=== PATIENT | female | born 1990 | race Caucasian/White ===

== ENCOUNTER 2024-12-15 09:44 | Outpatient (CLI) | payer MEDICAID, SELFPAY ==
[2024-12-17 03:08] LABS: HPV Source Cervical; HPV, High Risk by TMA Not Detected
== END 2024-12-15 09:45 | disposition home or self-care (01) ==
PROVIDERS: Visit Provider Obstetrics & Gynecology
DX: Z12.4 Encounter for screening for malignant neoplasm of cervix (principal); Z11.51 Encounter for screening for human papillomavirus (HPV)
CPT/HCPCS: 87624; 87625; 88141; 88142

== ENCOUNTER 2024-12-22 10:35 | Outpatient (CLI) | payer OTHER, SELFPAY ==
--- NOTE | 2024-12-22 10:45 | CRLHL7_ITS ---
For Patients: As a result of the Century Cures Act, medical imaging exams and procedure reports are released immediately into your electronic medical record. You may view this report before your referring provider. If you have questions, please contact your health care provider. CLINICAL HISTORY: Pelvic pain COMPARISON: None. TECHNIQUE: 2D hawk-scale ultrasound. In addition, color Doppler and spectral Doppler analysis was performed of the pelvis using a transabdominal and transvaginal approach. Transvaginal imaging performed to better visualize the endometrial stripe and ovaries. FINDINGS: There is a hypoechoic structure within the right side of the lower uterine segment myometrium which measures 1.4 x 1.4 x 1.0 cm. Scattered sub cm nabothian cysts are present elsewhere. The endometrial lining appears normal and measures 4.2 mm in thickness. The right ovary measures 3.8 x 1.9 x 2.1 cm in size and the left ovary measures 3.2 x 2.4 x 1.6 cm. The ovaries demonstrate normal arterial and venous blood flow on color Doppler and spectral Doppler analysis. There are no suspicious fluid collections within the cul-de-sac. IMPRESSION: Heterogeneously hypoechoic structure within the right side of the lower uterine segment measuring 1.4 cm. This has the appearance of a complex nabothian cyst. Unremarkable ovaries. No excess pelvic free fluid or adnexal mass. Dictated by Salvador Reyes MD @ 12/22/2024 11:54:36 AM (Electronically Signed)
--- OUTSIDE RECORDS SUMMARY | 2024-12-23 00:51 | XMS_ITS ---
Author Name Rodolfo LEUNG, DR. Vitaly Beal Address [address] [id number] [id number] [place] [address] Phone [phone] Organization [facility] Care Team Providers Care Process Control Technician Name Role Phone Vitaly Reynolds Unavailable [phone] Lesia Carrillo Unavailable Keily Alcala Unavailable Unavailable Reason for Referral Not Available Allergies, adverse reactions, alerts Allergen Type Reaction Severity Status Onset Date BuSpar Allergy to substance (disorder) suicidal ideation Unknown Active N/A History of medication use Medication Class Instructions Start Date End Date Adderall XR 10 mg Cap ER 24hr No Data Available 2023-07 No Data Available Testosterone 20.25 mg/1.25GM (1.62%) Gel Transdermal 2 pumps daily 2024-05-12 No Data Availabl e OXcarbazepine 300 mg Tab 1 tablet orally 2 times per day 2024-05-12 No Data Available Famotidine 40 mg Tab 1 tablet orally kate ly at night 2024-05-12 No Data Available Clarinex 5 mg Tab 1 tablet orally marlene y in the morning 2024-05-12 No Data Available Priti Allergy 180 mg Tab 1 tablet oral ly daily at night 2024-05-12 No Data Available Singulair 10 mg Tab 1 tablet orally marlene y in the morning 2024-05-12 No Data Available Xopenex HFA 45 MCG/ACT Aeros ol Inhalation prn 2024-05-12 No Data Available DHEA 5 mg/testosterone 1 mg/ mL vaginal cream No Data Available 2024-05-12 No Data Available Tylenol prn 2024-05-12 No Data Availab le NasalCrom 5.2 mg/ACT Aerosol Solution Nasal No Data Available 2024-05-12 No Data Available pataday allergy eye drops prn 2024-05-12 No Data Available melatonin 1.5 mg No Data Available 2024-05-12 No Philippe a Available Vitamin D3 1.25 mg (54150 UT ) Cap once weekly 2024-05-12 No Data Available Vitamin C 1000 mg Tab every other day 2024-05-12 No Data Available B12 No Data Available 2024-05-12 No Data Av ailable Quercetin 500 mg Cap No Data Available 2024-05-12 No Data Available Enzym[employer] DigestGold digestive enzymes with some meals 2024-05-12 No Data Available Famotidine 40 mg Tab 1 tablet orally 2 t imes per day 2024-05-13 No Data Available predniSONE 20 mg Tab 1 tablet orally 2 t imes per day 2024-05-13 No Data Available ketotifen 1 mg Take 1 capsule PO BID 2024-05-23 No D shira Available Cyclobenzaprine 10 mg Tab 1 tablet orall y daily at bedtime 2024-06-08 No Data Available Problem List Problem Status Onset Date Resolved Date Synopsis Generalized hypermobility of joints Active 2024-05-12 N/A N/A GERD (gastroesophageal reflux disease) Active N/A N/A Asthma Active 2024-05-12 N/A N/A Environmental allergies Active 2024-05-12 N/A N /A Migraine Active 2024-05-12 N/A N/A Encounters Encounters Type Facility Date of Service Diagnosis/Co mplaint new patient, high complexity office visit [facility] 05/13/2024 Hypermobile Matthew-Danlos syndromePostural orthostatic tachycardia syndrome [POTS]Mast cell activation, unspecifiedPersonal history of sex reassignmentMixed irritable bowel syndromeSleep disorder, unspecified new patient, high complexity office visit [facility] 05/13/2024 Social History Sex Female Gender identity Transgender man / trans masc uline History of Procedures Procedures Service Procedure code Service date Servicing provider Phone# new patient, high complexity office visit [id number] 2024-05-13 No Data Available No Data Availa ble Extended Visit (at least 15 min) [id number] 2024-05-13 No Data Available No Data Availa ble Functional Status No Information Mental Status No Information Assessments Date of Service Assessments 2024-05-13 11:12:00 Hypermobile Matthew-D anlos syndromesuspected POTS (postural orthostatic tachycardia syndrome)suspected Mast cell activationTransgender with history of gender affirmation surgeryIrritable bowel syndrome with alternating bowel habits- fair controlSleep disorder Plan of Care Date of Service Plans 2024-05-13 11:12:00 Recommend Follow up in 6 - 8 Weeksrecommended that pt see hypermobile/EDS aware PTSxs overall fairly mild, and don't need treatment. May improve with treatment for other conditions here.recommended that pt still consume 80-100oz of water per dayrecommended that pt increase salt intake and aim for 2000-4000mg of sodium (4-8g of salt) per dayrecommended that pt consider compression garments. compression socks/shorts/shapewear are useful. main area for compression should be abdomen, as our largest blood vessels are there.recommended that pt consider elevating the head of their bed at night. place something under the head of the bed frame to tilt the whole bed. do NOT just sleep with a lot of pillows under your head.recommended that pt take 5000 IU Vitamin D dailyrecommended that pt take 500-1000mg Vitamin C per dayIncrease Priti 180 to 2 bid; increase by one tab weeklyContinue Singulair in AM; PM dose caused problems, so will also avoid zafirlukast.Consider ASA later if not controlled.few pelvic sxs, fredi since not having periods for monthshas vaginal itching and rash, seems correlated with seasonal allergies, so will treat same, but if severe may take prednisone for 2-3 days.Testosterone per other provider.consider low FODMAP diet, including trial off gluten and dairy with other foods.Will increase famotidine to 40 mg bid. PPI's not helpful.May be a candidate for cromolyn.Improving with night device; continue as before. Goals Date Goal 2024-05-13 If not checked in pa [facility] 6 months, recommend a panel of blood tests to check for comorbidities (CBC, CMP, Vit D, Vit B12, iron stores: ferritin level, Fe/TIBC, tryptase, ESR, CRP, TSH, celiac, autoimmune panel (ALLAN, SS-A, SS-B, rheumatoid factor, IgA, IgE, IgG) 2024-05-13 Imaging may be neces ana depending on symptoms going forward. This may include:Neck flexion and extensionSpine films MRI - Upright if avaiable 2024-05-13 Clinician spent 20 m inutes reviewing the records, more than 50 minutes [id number] with the patient, over half in discussion of the diagnosis and next steps in care plan, and an additional 30 minutes completing documentation.
--- OUTSIDE RECORDS SUMMARY | 2024-12-23 00:59 | XMS_ITS | Patient Health Record ---
Author Organization MD ANYA Jaramillo, d yam[facility] Address [address] [address] Care Team Providers Care Business Reporting Developer Name Role Phone Carolyn Alcala Unavailable [phone] Allergies Allergen (clinical drug ingredient) Drug/Non Drug Allergy documented on EMR Reaction Allergy Type Onset Date Status BuSpar Unknown Drug Allergy Active fentanyl Fentanyl nausea and vomiting Drug Allergy Active Results Component Value Reference Range Notes 5020 VITAMIN C (ASCORBIC) Reviewed date:04/25/2024 08:39:04 AM Interpretation: Performing Lab: Notes/Report: VITAMIN C (ASCORBIC) 33 23-114 umol/L Vitamin C concentrations lower than 11 umol/L indicate deficiency. Concentrations between 11 and 23 umol/L are consistent with a moderate risk of deficiency due to inadequate tissue stores. Vitamin C concentration is reported as micromoles per liter (umol/L). To convert concentration to milligrams per deciliter (mg/dL), multiply the result by 0.0176. This test was developed and its performance characteristics determined by [facility]. It has not been cleared or approved by the US Food and Drug Administration. This test was performed in a CLIA certified laboratory and is intended for clinical purposes. TESTING PERFORMED AT [facility], [address] [address] [place]. [id number] CLIA NO. [id number] VITAMIN D, 25 [place] Reviewed date:04/25/2024 08:39:04 AM Interpretation: Performing Lab: Notes/Report: VITAMIN D, 25 OH 47 SEE BELOW NG/ML NOTE: 25-HYDROXYVITAMIN D ASSAY INCLUDES 25-HYDROXYVITAMIN D2 AND D3. INTERPRETIVE RANGES PEDIATRIC (<17 YEARS) . . . . . . . . . . . NG/ML 20-100 ADULT: INSUFFICIENT . . . . . . . . . . . . . . NG/ML <20 SUBOPTIMAL . . . . . . . . . . . . . . . NG/ML 20-29 OPTIMAL . . . . . . . . . . . . . . . . . NG/ML 30-100 8 IRON BINDING CAPACITY A ND IRON AND % SATURATION Reviewed date:04/25/2024 08:39:04 AM Interpretation: Performing Lab: Notes/Report: IRON, SERUM 91 37-145 UG/DL UNSATURATED IBC 331 112-347 UG/DL CALC TOTAL IBC 422 250-450 UG/DL CALC % IRON SAT 22 20-50 % Panel Full Spectrum Reviewed date:03/18/2024 11:15:20 AM Interpretation: Performing Lab: Notes/Report: Atopobium vaginae Not Detected Not Detected Bacteroides fragilis Not Detected Not Detected Aspen albicans Not Detected Not Detected Aspen glabrata Not Detected Not Detected Aspen krusei Not Detected Not Detected Aspen parapsilosis Not Detected Not Detected Aspen tropicalis Not Detected Not Detected Gardnerella vaginalis Not Detected Not Detected Mobiluncus curtisii Not Detected Not Detected Mobiluncus mulieris Not Detected Not Detected Mycoplasma genitalium Not Detected Not Detected Mycoplasma hominis Not Detected Not Detected Prevotella bivia Not Detected Not Detected Chlamydia trachomatis Not Detected Not Detected Neisseria Gonorrhea Not Detected Not Detected Trichomonas vaginalis Not Detected Not Detected Ureaplasma urealyticum Not Detected Not Detected Collection Device Aptima Multi-Test Swab Footnote SEE COMMENT Testing for A. vaginae, B. fragilis, C. albicans, C. glabrata, C. krusei, C. tropicalis, C. parapsilosis, G. vaginalis, M. curtisii, M. mulieris, M. genitalium, M. hominis, P. bivia, and U. urealyticum was developed and its performance characteristics determined by [facility], [employer]. It has not been cleared or approved by the FDA. The laboratory is regulated under CLIA as qualified to perform high complexity testing. This test is used for clinical purposes. It should not be regarded as investigational or for research. 6049 CULTURE, URINE Reviewed date:03/18/2024 11:16:01 AM Interpretation: Performing Lab: Notes/Report: CULTURE, URINE SPECIMEN NUMBER: [id number] CULTURE, URINE SPECIMEN NUMBER: [id number] SOURCE: URINE REPORT STATUS: FINAL FINAL REPORT: 03/18/2024 <10,000 CFU/ML UROGENITAL DALJIT PRESENT NO COMMON PATHOGENS UNLESS OTHERWISE INDICATED, ALL TESTING PERFORMED AT [facility] [employer] [employer] [address] [place] [address] [employer]UM[employer] RELATIONS MANAGER: DIPTI GUERRA M.D. CLIA NUMBER [id number] [place]. [id number] Urinalysis, Complete Reviewed date:03/16/2024 12:16:38 PM Interpretation: Performing Lab: Notes/Report: Urine-Color yellow Appearance clear Specific [place] 1.010 pH 8.0 Glucose - Protein - Occult Blood - Bilirubin - Urobilinogen,Semi-Qn 0.2 Nitrite, Urine - Ketones - WBC Esterase - 6049 CULTURE, URINE Reviewed date:03/04/2024 02:44:58 PM Interpretation: Performing Lab: Notes/Report: CULTURE, URINE SPECIMEN NUMBER: [id number] CULTURE, URINE SPECIMEN NUMBER: [id number] SOURCE: URINE REPORT STATUS: FINAL FINAL REPORT: 03/04/2024 <10,000 CFU/ML UROGENITAL DALJIT PRESENT NO COMMON PATHOGENS UNLESS OTHERWISE INDICATED, ALL TESTING PERFORMED AT [facility] [employer] [employer] [address] [place], [place] [address] ALUMNI RELATIONS MANAGER: DIPTI GUERRA M.D. CLIA NUMBER [id number] [place]. [id number] Urinalysis, Complete Reviewed date:03/02/2024 05:03:18 PM Interpretation: Performing Lab: Notes/Report: Urine-Color yellow Appearance clear Specific [place] 1.020 pH 6.0 Glucose neg Protein neg Occult Blood neg Bilirubin neg Urobilinogen,Semi-Qn 0.2 Nitrite, Urine neg Ketones neg WBC Esterase +-15 4273 FREE T3 Reviewed date:04/25/2024 08:39:04 AM Interpretation: Performing Lab: Notes/Report: FREE T3 3.0 2.2-4.2 PG/ML 2835 TSH Reviewed date:04/25/2024 08:39:04 AM Interpretation: Performing Lab: Notes/Report: TSH, THIRD GENERATION 2.340 0.400-4.100 UIU/ML 2823 FREE T4 (THYROXINE) Reviewed date:04/27/2024 12:47:29 PM Interpretation: Performing Lab: Notes/Report: FREE T4 (THYROXINE) 0.87 0.80-1.90 NG/DL UNLESS OTHERWISE INDICATED, ALL TESTING PERFORMED AT [facility] [employer] [address] [place] [address] [employer] RELATIONS MANAGER: DIPTI GUERRA M.D. CLIA NUMBER [id number] [place]. [id number] COMPREHENSIVE METABOLIC PANEL Reviewed date:01/20/2024 05:11:32 PM Interpretation: Performing Lab: Notes/Report: GLUCOSE 89 70-99 MG/DL BUN 9 6-20 MG/DL CREATININE 1.07 0.60-1.30 MG/DL eGFR (2020 CKD-EPI) 69 >60 ML/MIN/1.73 CALC BUN/CREAT 8 6-28 RATIO SODIUM 140 133-146 MEQ/L POTASSIUM 3.9 3.5-5.4 MEQ/L CHLORIDE 102 95-107 MEQ/L CARBON DIOXIDE 26 19-31 MEQ/L CALCIUM 9.7 8.5-10.5 MG/DL PROTEIN, TOTAL 7.6 6.1-8.3 G/DL ALBUMIN 4.8 3.5-5.2 G/DL CALC GLOBULIN 2.8 1.9-3.7 G/DL CALC A/G RATIO 1.7 1.0-2.6 RATIO BILIRUBIN, TOTAL <0.2 <=1.2 MG/DL ALKALINE PHOSPHATASE 92 40-114 U/L AST 23 9-40 U/L ALT 22 5-40 U/L 5020 VITAMIN C (ASCORBIC) Reviewed date:01/20/2024 05:11:32 PM Interpretation: Performing Lab: Notes/Report: VITAMIN C (ASCORBIC) 14 23-114 umol/L Vitamin C concentrations lower than 11 umol/L indicate deficiency. Concentrations between 11 and 23 umol/L are consistent with a moderate risk of deficiency due to inadequate tissue stores. Vitamin C concentration is reported as micromoles per liter (umol/L). To convert concentration to milligrams per deciliter (mg/dL), multiply the result by 0.0176. This test was developed and its performance characteristics determined by [facility]. It has not been cleared or approved by the US Food and Drug Administration. This test was performed in a CLIA certified laboratory and is intended for clinical purposes. TESTING PERFORMED AT [facility] [address] [place] [address] [place]. [id number] CLIA NO. [id number] UNLESS OTHERWISE INDICATED, ALL TESTING PERFORMED AT [facility] [address] [place] [address] [employer]UMNI RELATIONS MANAGER: DIPTI GUERRA M.D. CLIA NUMBER [id number] [place]. [id number] VITAMIN D, 25 OH Reviewed date:01/20/2024 05:11:32 PM Interpretation: Performing Lab: Notes/Report: VITAMIN D, 25 OH 25 SEE BELOW NG/ML NOTE: 25-HYDROXYVITAMIN D ASSAY INCLUDES 25-HYDROXYVITAMIN D2 AND D3. INTERPRETIVE RANGES PEDIATRIC (<17 YEARS) . . . . . . . . . . . NG/ML 20-100 ADULT: INSUFFICIENT . . . . . . . . . . . . . . NG/ML <20 SUBOPTIMAL . . . . . . . . . . . . . . . NG/ML 20-29 OPTIMAL . . . . . . . . . . . . . . . . . NG/ML 30-100 4273 FREE T3 Reviewed date:01/20/2024 05:11:32 PM Interpretation: Performing Lab: Notes/Report: FREE T3 2.9 2.2-4.2 PG/ML 2840 VITAMIN B-12 Reviewed date:01/20/2024 05:11:32 PM Interpretation: Performing Lab: Notes/Report: VITAMIN B-12 295 200-950 PG/ML 2835 TSH Reviewed date:01/20/2024 05:11:32 PM Interpretation: Performing Lab: Notes/Report: TSH, THIRD GENERATION 2.420 0.400-4.100 UIU/ML 2823 FREE T4 (THYROXINE) Reviewed date:01/20/2024 05:11:32 PM Interpretation: Performing Lab: Notes/Report: FREE T4 (THYROXINE) 0.90 0.80-1.90 NG/DL 1000 CBC W/AUTO DIFF Reviewed date:01/20/2024 05:11:32 PM Interpretation: Performing Lab: Notes/Report: WBC 6.7 3.5-11.0 K/UL RBC 6.72 3.80-5.40 M/UL HEMOGLOBIN 16.6 11.5-15.5 G/DL HEMATOCRIT 51.7 34.0-45.0 % MCV 76.9 80.0-99.0 fL MCH 24.7 25.0-33.0 PG MCHC 32.1 31.0-36.0 G/DL RDW 16.8 11.5-15.0 % NEUTROPHILS 61.4 LYMPHOCYTES 29.8 MONOCYTES 6.6 EOSINOPHILS 0.9 BASOPHILS 1.0 NUCLEATED RBCS 0.0 0.0 /100 WBC'S PLATELET COUNT 404 130-400 K/UL IMMATURE GRANULOCYTES 0.3 ABSOLUTE NEUTROPHILS 4.09 1.50-7.50 K/UL ABSOLUTE LYMPHOCYTES 1.99 1.00-4.00 K/UL ABSOLUTE MONOCYTES 0.44 0.20-1.00 K/UL ABSOLUTE EOSINOPHILS 0.06 0.00-0.50 K/UL ABSOLUTE BASOPHILS 0.07 0.00-0.20 K/UL ABS IMMATURE GRANULOCYTES 0.02 0.00-0.10 K/UL ABS NUCLEATED RBCS 0.00 0.00-0.11 K/UL 391 ARTHRITIS PROFILE Reviewed date:01/25/2024 03:26:05 PM Interpretation: Performing Lab: Notes/Report: RHEUMATOID FACTOR, QUANT <10 <14 IU/ML URIC ACID 5.1 2.7-6.1 MG/DL SEDIMENTATION RATE 2 0-20 MM/HOUR ANTI-NUCLEAR ANTIBODIES POSITIVE NEGATIVE ALLAN PATTERN (REPORTED TITER) SEE BELOW HOMOGENEOUS 1:80 NEGATIVE TITER SPECKLED NEGATIVE NEGATIVE TITER DENSE FINE SPECKLED NEGATIVE NEGATIVE TITER CENTROMERE NEGATIVE NEGATIVE TITER COARSE SPECKLED NEGATIVE NEGATIVE TITER DISCRETE NUCLEAR DOTS NEGATIVE NEGATIVE TITER NUCLEOLAR NEGATIVE NEGATIVE TITER NUCLEAR MEMBRANE NEGATIVE NEGATIVE TITER CYTO. RETICULAR (JONO) NEGATIVE NEGATIVE COMMENTS NONE METHOD (NOTE) TESTING PERFORMED BY [facility] [employer] [facility]. THE METHOD INCLUDES A SCREEN THRESHOLD OF 1:80, DIGITIZED AND COMPUTER ALGORITHM-ASSISTED INTERPRETATION OF TITERS AND DIGITAL PATTERNS, AND HEp-2 CELL LINE SUBSTRATE. ADDITIONAL UNUSUAL PATTERNS WILL BE GIVEN COMMENTS. FOR MORE INFORMATION, SEE [email or web address] ing Reason For Referral Reason CALL BCBS-Availity s aid Duplicate. referral exp 01.15.2024-insurance only Andreia Velasquez-[id number]- [address] [place] [address]. PH:[phone] - FAX: [phone] Diagnosis 1 Skin cancer screenin remi (Z12.83) Referral Organization MD ANYA Jaramillo, broker in charge [facility] Referring Provider First Name Carolyn Referring Provider Last Name Fredrick Referring Provider [facility] Referred Provider Specialty Dermatology Referral Priority Routine Medications Medication SIG (Take, Route, Frequency, Duration) Notes Start Date End Date Status Singulair 10 MG 1 tablet Orally at night Active Melatonin 3 MG 1 tablet at bedtime as needed Orally Once a day Active Promethazine HCl 25 MG 1 tablet as neede d Orally every 12 hrs Active Famotidine 40 MG 1 tablet Orally Once a day for 90 days 02/04/2024 Active NasalCrom 5.2 MG/ACT 1 spray in each nos tril Nasally Three times a day Active Xopenex HFA 45 MCG/ACT 1 puff as needed Inhalation every 6 hrs for 30 days 07/14/2023 Active Levothyroxine Sodium 25 MCG 1 tablet in the morning on an empty stomach Orally Once a day for 90 days 01/26/2024 Not-Taking Escitalopram Oxalate 5 MG 1 tablet Orall y Once a day Active Adderall XR 10 MG 1 capsule in the morning Orally Once a day Active Desloratadine 5 MG 1 tablet Orally Once a day for 30 days 04/20/2024 Active Testosterone 20.25 MG/1.25GM (1.62%) 1 packet to skin in the morning to shoulder and upper arms Transdermal Once a day Active OXcarbazepine 300 MG 1 tablet Orally Twi ce a day Active Social History Tobacco Use: Social History Observation Description Date Details (start date - stop date) Never Smoker NA - NA Tobacco Use/Smoking Question Answer Notes Are you a nonsmoker AUDIT-C (Standard) Question Answer Notes Did you have a drink containing alcohol in the p ast year? No Points 0 Interpretation Negative Problems Problem Type SNOMED Code ICD Code Onset Dates Problem Status W/U Status Risk Notes Problem Obstructive sleep apnea syndrome (disorder) (00365366) Obstructive sleep apnea (adult) (pediatric) (G47.33) Active confirmed Problem Acquired hypothyroidism (564276736) Acquired hypothyroidism (E03.9) Active confirmed Problem Seasonal allergy (383405009) Seasonal allergies (J30.2) Active confirmed Problem 19562675 Chronic fatigue (R53.82) Active confirmed Problem 16209682 Other iron deficiency anemia (D50.8) Active confirmed Problem 323006077 Mild intermitten t asthma with acute exacerbation (J45.21) Active confirmed Problem Vitamin D deficiency (86905469) Vitamin D deficiency (E55.9) Active confirmed Problem Obstructive sleep apnea (34948455) Obstructive sleep apnea (G47.33) Active confirmed Problem 246232975 Gastroesophageal reflux disease, unspecified whether esophagitis present (K21.9) Active confirmed Problem 79495939 Atrophic vaginit is (N95.2) Active confirmed Problem 10361319 Gender dysphoria in adult (F64.0) Active confirmed Vital Signs Heart Rate 96 /min 04/20/2024 Temperature 98.2 degrees Fahrenheit 04/20/2024 Blood pressure diastolic 78 mm Hg 04/20/2024 Oximetry 97 % 04/20/2024 Height 68 in 04/20/2024 Blood pressure systolic 124 mm Hg 04/20/2024 Weight 153.8 lbs 04/20/2024 BMI 23.38 kg/m2 04/20/2024 Procedures Procedure Date Ordered Date Performed Result Body Sit e Sleep Study 01/26/2024 N/A Encounters Encounter Location Date Provider Diagnosis MD ANYA Jaramillo, [facility] [address] [place] [phone] 01/15/2024 Carolyn Alcala Multiple joint pain M25.50 ; Chronic fatigue R53.82 ; Mild intermittent asthma with acute exacerbation J45.21 and Skin cancer screening Z12.83 MD ANYA Jaramillo, [facility] [address] [place] [phone] 01/26/2024 Carolyn Alcala Polycythemia D75.1 ; Acquired hypothyroidism E03.9 ; Vitamin B12 deficiency E53.8 ; Vitamin D deficiency E55.9 ; Vitamin C deficiency E54 ; Other iron deficiency anemia D50.8 and Obstructive sleep apnea G47.33 MD ANYA Jaramillo, [facility] [address] [place] [phone] 02/04/2024 Carolyn Alcala Gastroesophageal ref lux disease, unspecified whether esophagitis present K21.9 and Obstructive sleep apnea (adult) (pediatric) G47.33 MD ANYA Jaramilol, [facility] [address] [place] [phone] 03/02/2024 Carolyn Alcala Dysuria R30.0 and Ac picayune cystitis without hematuria N30.00 MD ANYA Jaramillo, [facility] [address] [place] [phone] 03/16/2024 Carolyn Alcala Dysuria R30.0 ; Atro phic vaginitis N95.2 ; Vaginal irritation N89.8 ; Gastroesophageal reflux disease, unspecified whether esophagitis present K21.9 and Gender dysphoria in adult F64.0 MD ANYA Jaramillo, [facility] [address] [place] [phone] 04/20/2024 Carolyn Alcala Vitamin D deficiency E55.9 ; Vitamin C deficiency E54 ; Other iron deficiency anemia D50.8 ; Seasonal allergies J30.2 ; Acquired hypothyroidism E03.9 and Atrophic vaginitis N95.2 MD ANYA Jaramillo, [facility] [address] [place] [phone] 01/25/2024 MD ANYA Carson, [facility] [address] [place] [phone] 02/03/2024 MD ANYA Carson, [facility] [address] [place] [phone] 03/18/2024 MD ANYA Carson, [facility] [address] [place] [phone] 04/27/2024 Carolyn Alcala Assessments Encounter Date Diagnosis (ICD Code) Assessment Notes Treatment Notes Treatment Clinical Notes Section Notes 01/26/2024 Polycythemia (ICD-10 - D75.1) Pt placed on waiting list for a sleep study Refer to hematology if her sleep study is normal 02/04/2024 Obstructive sleep apnea (adult) (pediatric) (ICD-10 - G47.33) Pt will look into getting a dental appliance 02/04/2024 Gastroesophageal reflux disease, unspecified whether esophagitis present (ICD-10 - K21.9) 03/02/2024 Acute cystitis without hematuria (ICD-10 - N30.00) 03/02/2024 Dysuria (ICD-10 - R30.0) 03/16/2024 Dysuria (ICD-10 - R30.0) 01/15/2024 Chronic fatigue (ICD-10 - R53.82) 01/15/2024 Multiple joint pain (ICD-10 - M25.50) 01/26/2024 Acquired hypothyroidism (ICD-10 - E03.9) 03/16/2024 Atrophic vaginitis (ICD-10 - N95.2) Begin Estriol and Testosterone vaginally through [facility]. 04/20/2024 Vitamin D deficiency (ICD-10 - E55.9) 04/20/2024 Vitamin C deficiency (ICD-10 - E54) 04/20/2024 Other iron deficiency anemia (ICD-10 - D50.8) 01/15/2024 Mild intermittent asthma with acute exacerbation (ICD-10 - J45.21) 03/16/2024 Vaginal irritation (ICD-10 - N89.8) 01/26/2024 Vitamin B12 deficiency (ICD-10 - E53.8) Advixed to take Methyl B12 1000 mcg daily 01/26/2024 Vitamin D deficiency (ICD-10 - E55.9) Advised to take 50,000 IUs once a week 03/16/2024 Gastroesophageal reflux disease, unspecified whether esophagitis present (ICD-10 - K21.9) 01/15/2024 Skin cancer screening (ICD-10 - Z12.83) 04/20/2024 Seasonal allergies (ICD-10 - J30.2) 03/16/2024 Gender dysphoria in adult (ICD-10 - F64.0) 04/20/2024 Acquired hypothyroidism (ICD-10 - E03.9) He previously did not want treatment 01/26/2024 Vitamin C deficiency (ICD-10 - E54) Take OTC Viramin C 1000mg qd 01/26/2024 Other iron deficiency anemia (ICD-10 - D50.8) OTC Iron bisglycinate qd 04/20/2024 Atrophic vaginitis (ICD-10 - N95.2) Sent CMPD DHEA 5 mg, Testosterone 1 mg to [facility] 01/26/2024 Obstructive sleep apnea (ICD-10 - G47.33) Plan Of Treatment Pending Test Test Name Order Date Sleep Study 01/26/2024 Insurance Providers Payer Name Payer Address Payer Phone Subscriber Number Group Number Insured Name Patient Relationship to Insured Coverage Start Date Coverage End Date [facility] [address] [place] [address] [phone] [id number] Luis M Polo Self - patient is the insured Medical (General) History Medical History History ICD Code G.I Ulcers Hypermobility spectrum disorder Bipolar DIsorder, Dr. Fried Anxiety ADHD Asthma gender reassignment, HRT doctor Surgical History Surgery Date(Month/Year) Strabismus Correction 2011 Gender Affirming Top Surgery 2022 Hospitalization History Reason Date(Month/Year) Gender Affirming Top Surgery 03/2023
--- OUTSIDE RECORDS SUMMARY | 2024-12-23 00:59 | XMS_ITS | Clinical Summary ---
Author Organization [employer] [facility] [employer] Address [address] [place] [id number] Care Team Providers Care Latent Print Examiner Name Role Phone Pcp, No Primary Care Provider Unavailabl e Sayda Mohr DO Unavailable [phone] Allergies Active Allergy Reactions Criticality Noted Date Comments Buspirone Other - Describe In Comment Field 09/09/2024 increased suicidal ideation Fentanyl Nausea And Vomiting 09/09/2024 Midazolam Nausea And Vomiting 09/09/2024 Medications desloratadine (Clarinex) 5 mg tablet Take 5 mg by mouth once daily. Active famotidine (PEPCID) 40 mg tablet Take 40 mg by mouth once daily. Active fexofenadine (Priti Allergy) 180 mg tablet Take 180 mg by mouth once daily. Active levalbuterol (Xopenex HFA) 45 mcg/actuation inhaler Inhale 1-2 Puffs by mouth every 4 hours. Active ketoconazole 2% shampoo (NIZORAL) 2 % shampoo Apply topically to affected area(s). Lather on damp scalp, leave on for 5min, then rinse with water. Active cyclobenzaprine (FLEXERIL) 10 mg tabletIndications: Pelvic floor dysfunction Take 1 Tablet (10 mg) by mouth at bedtime if needed for Muscle Spasm. 90 Tablet 5 Active montelukast (Singulair) 10 mg tabletIndications: Seasonal allergies Take 1 Tablet (10 mg) by mouth at bedtime. 90 Tablet 1 Active testosterone (ANDROGEL) 20.25 mg/1.25 gram (1.62 %) glpm transdermal gelIndications:mal e transgender hormone therapy Apply 2 pumps (40.5 mg) on dry, clean, hairless skin once daily in the morning. 75 g 1 Active cholecalciferol (vitamin D3) (VITAMIN D3 ORAL) Take by mouth. Daily as directed Active ascorbic acid (VITAMIN C ORAL) Take by mouth. Daily as directed Active dextroamphetamine- amphetamine (Adderall XR) 10 mg Extended-Release capsuleIndications :Attention deficit hyperactivity disorder (ADHD), unspecified ADHD type Take 1 Capsule (10 mg) by mouth once daily. 30 Capsule Active OXcarbazepine 300 mg tabletIndications: Bipolar II disorder (HC) Take 1 Tablet (300 mg) by mouth two times daily. 60 Tablet 3 Active escitalopram oxalate 5 mg tabletIndications: Anxiety,Gender dysphoria Take 1 Tablet (5 mg) by mouth once daily in the morning. 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 Sleep apnea 09/09/2024 Gastric reflux 09/09/2024 Mitral valve insufficiency 09/09/2024 Encounters Date Type Department Care Team Description 10/13/2024 10:30 AM CDT Telemedicine [facility] [place] [address] [place] [address] Tiffanie Medina DO Mental Health Intake (Previous MH provider Jorge L Fried in [facility], pt will go to [facility] to fill out MAYKEL and have faxed for MH records); Medication Management 10/10/2024 Travel from Last 3 Months Social History Tobacco Use Types Packs/Day Years Used Date Smoking Tobacco: Never Smokeless Tobacco: Never Tobacco Cessation:Counseling Given: Not Answered Comments:10/13/24 Alcohol Use Standard Drinks/Week Comments Yes 0 (1 standard drink = 0.6 oz pur e alcohol) twice montly; 10/13/24 PHQ-2 Answer Date Recorded PHQ-2 TOTAL SCORE 3 10/12/2024 Social Connections Answer Date Recorded Do you often feel lonely or isolated from those around you? 0 09/08/2024 Financial Resource Strain Answer Date R ecorded Difficulty of Paying Living Expenses 3 09/08/2024 Difficulty of Paying Living Expenses Not on file 09/08/2024 Food Insecurity Answer Date Recorded Do you worry your food will run out before you are able to buy more? 1 09/08/2024 Transportation Needs Answer Date Record ed Does lack of transportation keep you from medica l appointments? 1 09/08/2024 Does lack of transportation keep you from work, meetings or getting things that you need? 1 09/08/2024 Housing Stability Answer Date Recorded What is your housing situation today? 1 09/08/2024 Utilities Answer Date Recorded Do you have trouble paying f or utilities (for example, heat, electricity, water, phone)? 1 09/08/2024 Comments Unknown Sex and Gender Information Value Date Recorded Sex Assigned at Female 09/09/2024 10:52 AM INCLUSION TEACHER Legal Sex Male 10:31 AM INCLUSION TEACHER Gender Identity Transgender Male 09/09/2024 10:5 2 AM INCLUSION TEACHER Sexual Orientation Lesbian or Grajeda 09/09/2024 10 :52 AM INCLUSION TEACHER Obstetrics History Last Filed Vital Signs Vital Sign Reading Time Taken Comments Blood Pressure 129/93 09/09/2024 11:09 AM INCLUSION TEACHER Pulse 99 09/09/2024 11:09 AM INCLUSION TEACHER Temperature - - Respiratory Rate - - Oxygen Saturation - - Inhaled Oxygen Concentration - - Weight 73 kg (161 lb) 09/09/2024 10:29 AM INCLUSION TEACHER Height - - Body Mass Index - - Plan of Treatment Upcoming Encounters Date Type Department Care Team (Late st Contact Info) Description 01/20/2025 12:40 PM CDT Office Visit [facility] [address] [place] [id number] [place] [address] [place], [place] [id number] Health Maintenance Due Date Last Done Comments Tdap 1999 HIV for age 15-65 2003 BMI (ht and wt on same day) for age 18+ 2006 Hepatitis C screening for age 18-79 2006 Hepatitis B series for 19+ ( 1 of 3 - 19+ 3-dose series) 2007 Pneumococcal series for age 6-49 (1 of 2 - PCV) 2007 Tetanus booster 2008 Pap test for age 21-65 2009 COVID-19 vaccine series ( - 2023- season) 2024 Influenza Vaccine (Season Ended) 2025 Depression screening for age 12+ 10/13/2025 10/13/2024, 10/12/2024, 09/09/2024 Lipids for age 35-44 09/09/2029 09/09/2024 Procedures Procedure Name Priority Date/Time Associated Diagnosis Comments LIPID PANEL W REFLEX MEASURED LDL Routine 09/09/2024 11:26 AM INCLUSION TEACHER Encounter to establish care from Last 3 Months or Most Recently Relevant to Health Maintenance Results * (ABNORMAL) LIPID PANEL W REFLEX MEASURED LDL (09/09/2024 11:26 AM INCLUSION TEACHER) CHOLESTEROL, TOTAL 248(H) <200 mg/dL [facility] HDL CHOLESTEROL 51 > OR = 40 mg/dL [facility] TRIGLYCERIDES 201(H) <150 mg/dL [facility] Comment: If a non-fasting specimen was collected, consider repeat triglyceride testing on a fasting specimen if clinically indicated. Hua et al. J. of Clin. Lipidol. 2015;9:129-169. LDL-CHOLESTEROL 160(H) mg/dL (calc) [facility] Comment: Reference range: <100 Desirable range <100 mg/dL for primary prevention; <70 mg/dL for patients with CHD or diabetic patients with > or = 2 CHD risk factors. LDL-C is now calculated using the Eun calculation, which is a validated novel method providing better accuracy than the Friedewald equation in the estimation of LDL-C. Severiano SS et al. SHARON. 2013;310(19): 5170-0202 (http://education.Jimmy Fairly.Haha Pinche/faq/UDE661) CHOL/HDLC RATIO 4.9 <5.0 (calc) [facility] NON HDL CHOLESTEROL 197(H) <130 mg/dL (calc) [facility] Comment: For patients with diabetes plus 1 major ASCVD risk factor, treating to a non-HDL-C goal of <100 mg/dL (LDL-C of <70 mg/dL) is considered a therapeutic option. Blood BLOOD SPECIMEN / Unknown 09/09/2024 11:26 AM INCLUSION TEACHER 09/09/2024 11:26 AM INCLUSION TEACHER Sayda Mohr DO CHEMISTRY Final Resu lt [employer] [facility] [address] [place] [address], [facility] [address] [place] [address] from Last 3 Months or Most Recently Relevant to Health Maintenance Insurance [facility] [employer] AND FAMILY PLANS Care Teams Latent Print Examiner Relationship Specialty Start Date End Date Pcp, No . PCP - General 11/14/24 Sayda Mohr DO [address] [place] [address] Family Practice 11/14/24
== END 2024-12-22 10:36 | disposition home or self-care (01) ==
LOC: US 10:37
PROVIDERS: Visit Provider Obstetrics & Gynecology
DX: R10.2 Pelvic and perineal pain (principal)
CPT/HCPCS: 76830; 76856; 93976